=== PATIENT | male | born 1995 | race Caucasian/White ===

== ENCOUNTER → 2017-11-13 | Outpatient (CLI) | payer OTHER | LOC: COL.RAD 09:06 | DX: N50.3 Cyst of epididymis (principal) ==

== ENCOUNTER 2018-07-30 10:03 | Outpatient (RCR) | payer OTHER | END 2018-10-28 | disposition home or self-care (01) | LOC: WSOH | DX: Z48.02 Encounter for removal of sutures (principal) ==

== ENCOUNTER 2019-09-07 13:30 | Emergency (ER) | payer BC ==
[~2019-09-07] VITALS: Ht 188 cm; Wt 84.1 kg
[2019-09-07 13:39] VITALS: TEMP 98.7
[2019-09-07 13:56] LABS: BASO # 0.1 (0.0-0.2); BASO % 0.7 % (0.0-2.0); EOS # 0.1 (0.0-0.7); EOS % 1.8 % (0-4.0); GRAN # 3.4 (1.4-6.5); GRAN % 46.1 % (42.2-75.2); HEMATOCRIT 41.5 % (42.0-52.0); LYMPH % 40.6 % (20.0-51.0); MEAN CELL VOLUME 90 fl (80.0-100.0); MEAN CORPUSCULAR HEMOGLOBIN 30 pg (27.0-31.0); MEAN CORPUSCULAR HGB CONC 34 g/dl (33.0-37.0); MEAN PLATELET VOLUME 10.3 fl (7.4-10.4); MONO # 0.7 (0.1-0.6); MONO % 10.2 % (1.7-9.3); PLATELET COUNT 218 K/mm3 (130-400); REDCELL DISTRIBUTION WIDTH-CV 12.4 % (11.5-14.5)
[2019-09-07 14:01] LABS: PROTHROMBIN TIME 11.7 SECONDS (9.7-12.8)
[2019-09-07 14:07] LABS: ALANINE AMINOTRANSFERASE 29 U/L (4-49); ALBUMIN 4.7 gm/dL (3.5-5.0); ALKALINE PHOSPHATASE 52 U/L (50-136); ANION GAP 10 mmol/L (7-16); AST,SGOT 30 U/L (15-37); BILIRUBIN,TOTAL 1.1 mg/dL (0.0-1.0); BLOOD UREA NITROGEN 12 mg/dL (9-20); CALCIUM 9.7 mg/dL (8.4-10.2); CARBON DIOXIDE 26 mmol/L (22-30); CHLORIDE 103 mmol/L (98-107); CREATININE, serum 0.78 (0.66-1.25); GLUCOSE 118 mg/dL (74-106); LIPASE 146 U/L (23-300); POTASSIUM 3.8 mmol/L (3.4-5.0); SODIUM 139 mmol/L (137-145); TOTAL PROTEIN 7.8 gm/dL (6.4-8.2)
[2019-09-07 14:20] LABS: TROPONIN-I < 0.012 ng/mL (0.000-0.035)
[2019-09-07 14:38] LABS: TSH w REFLEX 0.225 uIU/mL (0.465-4.680)
[2019-09-07 15:54] VITALS: BP 112/72; PULSE 72
== END 2019-09-07 15:54 | disposition home or self-care (01) ==
LOC: COL.ER 13:30
PROVIDERS: Emergency Medicine
DX: I10 Essential (primary) hypertension (principal)
CPT/HCPCS: J7030